=== PATIENT | female | born 1950 | race Caucasian/White ===

== ENCOUNTER 2018-10-14 11:33 | Inpatient (IN) | payer OTHER ==
--- NOTE | 2018-10-14 12:24 | PDOC ---
History of Present Illness - General Stated Complaint: FEVER Time Seen by Provider: 10/14/18 12:12 - History of Present Illness Initial Comments: 10/14/18 14:37 68 yo F h/o end stage copd, htn afib/ flutter, s/p trach, s/p PICC line who presents to the ED for fever and lethargy. As per NH the patient was altered, less responsive today, hypotensive in the 70' s and low grade fever. At baseline the patient tracks with eyes and responds to command but not this morning. per nursing pt had picc line on arrival at [facility], but was not being used. per long term papers pt was admitted to [facility] from 09/20 - for resp failure, from copd esacerbation, treated for pneumonia and copd, intubated by ems, was on ventilator at [place], extubated on 09/25 which failed, so then switched to trach. peg. on 10/02, and 10/03, then sent to [facility] for rehab 10/06. was noted to have afib/aflutter, . per nursing pt was more alert on arrival to rehab would communicate by nodding, ask to sponge mouth, etc. over last two days became more drowsy with low grade temps. 10/14/18 14:41 Patient is DNR Past History - Past Medical History Allergies/Adverse Reactions: Allergies Allergy/AdvReac Type Severity Reaction Status Date / Time No Known Allergies Allergy Verified 10/14/18 12:24 Review of Systems - Review of Systems Able to Perform ROS?: No (altrered, nonverbal) *Physical Exam - Physical Exam General Appearance: Yes: Moderate Distress HEENT: positive: EOMI, EL Respiratory/Chest: positive: Decreased Breath Sounds, Rhonchi Cardiovascular: positive: Tachycardia, Irregularly Irregular Gastrointestinal/Abdominal: positive: Normal Bowel Sounds, Flat, Distended. negative: Tender, Soft Neurologic: negative: Fully Oriented, Alert, Normal Mood/Affect ED Treatment Course - LABORATORY CBC & Chemistry Diagram: 10/14/18 13:21 10/14/18 13:21 Medical Decision Making - Medical Decision Making 10/14/18 16:47 68 yo F h/o end stage copd, htn afib/ flutter, s/p trach, s/p PICC line who presents to the ED for fever and lethargy. Sepsis source can be either from Ventilator-associated pneumonia, UTI, or soft tissue infection from removed PICC line Septic workup ordered, positive for elevated wbc and lactate as well as 6.8 hemoglobin. Patient started on antibiotics covering atypicals as well and rbc's. + 2L of fluid. Spoke to daughter who would like the patient to get blood transfusion but no central line which disqualifies the patient for ICU admission. Patient admitted to med surg. Obtaining ct abdomen and hest to [facility] source of infection. Positive for left pneumonia. *DC/Admit/Observation/Transfer Diagnosis at time of Disposition: Septic shock - Discharge Dispostion Decision to Admit order: Yes - Referrals - Patient Instructions - Post Discharge Activity
[2018-10-14] MEDS ORDERED: VANCOMYCIN 1 GM in D5W (PRE-DOCKED) 1,000 MG/250 ML IVPB ONE (12:33)
[2018-10-14] MEDS ORDERED: PIPERACILLIN/TAZOB 3.375 GM 3.375 GM in DEXTROSE 5%-WATER - 50 ML IVPB ONE (12:34)
[2018-10-14] MEDS ORDERED: SODIUM CHLORIDE 1,000 ML IV STA (12:36)
[2018-10-14] MEDS ORDERED: VANCOMYCIN 1 GRAM (PRE-DOCKED) 1,000 MG/250 ML BAG IVPB ONE (13:26)
[2018-10-14] MEDS ORDERED: PIPERACILLIN/TAZOB 3.375 GM 3.375 GM/50 ML BAG IVPB ONE (13:27)
[2018-10-14] MEDS ORDERED: ACETAMINOPHEN 1000 MG/100 ML VIAL (NON FORMULARY) IVPB ONE (13:34)
[2018-10-14] MEDS ORDERED: ACETAMINOPHEN INJECTION 100 ML IVPB ONE (13:35)
[2018-10-14 13:42] LABS: BASO % 0.5 % (0-2.0); HEMATOCRIT 20.2 % (32.4-45.2); LYMPH % 4.7 % (8-40); MCH 30.2 pg (25.7-33.7); MCHC 33.6 g/dl (32.0-36.0); MEAN PLT VOLUME 8.7 fl (7.5-11.1); MONO % 12.1 % (3.8-10.2); NEUT % 82.7 % (42.8-82.8); PLATELET COUNT 365 K/MM3 (134-434); RBC 2.24 M/mm3 (3.60-5.2); RDW 14.5 % (11.6-15.6); WHITE BLOOD COUNT 11.1 K/mm3 (4.0-10.0)
[2018-10-14 14:08] LABS: HEMOGLOBIN 6.8 GM/dL (10.7-15.3)
--- NOTE | 2018-10-14 14:09 | PDOC ---
Documentation entered by Ibeth Sanchez SCRIBE, acting as scribe for Vale Burrell MD. Vale Burrell MD: This documentation has been prepared by the donnye, Ibeth Sanchez SCRIBE, under my direction and personally reviewed by me in its entirety. I confirm that the documentation accurately reflects all work, treatment, procedures, and medical decision making performed by me. Attending Attestation - Resident Resident Name: Marlon Carrasco - ED Attending Attestation I have performed the following: I have examined & evaluated the patient, The case was reviewed & discussed with the resident, I agree w/resident's findings & plan, Exceptions are as noted - HPI HPI: 10/14/18 13:33 68 yo F h/o end stage copd, htn afib/ flutter, s/p trach, s/p PICC line who presents to the ED for fever and lethargy. As per residential, the patient was less aware today than she normally is (usually responds to stimuli, tracks with eyes). was also noted to have low samantha fever of 100 and was hypotensive in 70' s per her family ( daughter lesley [phone] and granddaughter) the facility pulled her picc line yesterday. per nursing pt had picc line on arrival at [facility], but was not being used. per residential papers pt was admitted to [facility] from 09/20 - for resp failure, from copd esacerbation, treated for pneumonia and copd, intubated by ems, was on ventilator at [place], extubated on 09/25 which failed, so then switched to trach. peg. on 10/02, and 10/03, then sent to [facility] for rehab 10/06. was noted to have afib/aflutter, . per nursing pt was more alert on arrival to rehab would communicate by nodding, ask to sponge mouth, etc. over last two days became more drowsy with low grade temps. In the ER, rectal temp was recorded at 101. diltiazem, atenolol prednisone 10 mg tid on a taper asa 81 xanax quitiepine 50 duonebs 10/14/18 13:50 10/14/18 14:07 - Physicial Exam PE: 10/14/18 13:52 pt eyes open, does not respond. trach in place. peg noted on abd. lungs with decreased breath sounds left side. no crackels, occasional exp wheezing noted. abd distended. peg with purulence, mucous at site. ext wwp. no noted edema. nuero pt does not respond or follow commands. seen to be spontaneously moving both arms. sacaral decub stage II, pink base. no surrounding erythema or exudate. dressingin place. 10/14/18 14:07 - Medical Decision Making 10/14/18 13:53 68 yo F copd htn trach/ peg with fever and hypotension. likley sepsis. sources include poss bacteremia from picc line, pneumonia, ventilator associated, uti, . plan lab ua cxr cultures. broad coverage abx given vanco and zosyn. pt with molst DNR / DNI. will d/w family further regarding other invasive procedures such as central access and pressor support. rescusitation with ivf. 10/14/18 14:13 pt with elevated wbc 11, noted to be anemic. 6.1 d/w family regarding possible transfusion are agreeable to transfusion. will admit pt sepsis, anemia. noted to have loose stool, c diff sent. will add stool occult. 10/14/18 14:36 Phone call placed to Dr. Martini service, admitting for Dr. Cyr. Call returned promptly and case was discussed. 10/14/18 16:01 pt evaluated by ICU further discussion with family, they would not like iv pressore, no central line, no dialysis, no surgery. ok with blood transfusion, pt is to be DNR. Heart Score/ECG Review #1 General ECG Interpretation: Sinus Rhythm, Normal Rate (95), Normal Intervals, No acute ischemic changes
[2018-10-14 14:12] LABS: ALBUMIN 1.9 g/dl (3.4-5.0); ALK PHOS 117 U/L (45-117); ANION GAP 7 MMOL/L (8-16); BILIRUBIN,TOTAL 0.5 mg/dL (0.2-1); BLOOD UREA NITROGEN 42 mg/dL (7-18); CALCIUM 8.8 mg/dL (8.5-10.1); CHLORIDE 89 mmol/L (98-107); CO2 36 mmol/L (21-32); CREATININE 0.7 mg/dL (0.55-1.3); GLUCOSE,RANDOM 145 mg/dL (74-106); POTASSIUM 5.1 mmol/L (3.5-5.1); SGOT/AST 15 U/L (15-37); SGPT/ALT 38 U/L (13-61); SODIUM 132 mmol/L (136-145); TOT PROT 5.9 g/dl (6.4-8.2)
[2018-10-14 14:15] LABS: INR 1.11 (0.83-1.09); PROTHROMBIN TIME (PATIENT) 13.1 SEC (9.7-13.0)
[2018-10-14 14:18] LABS: ACTIVATED PTT 31.7 SECONDS (25.2-36.5)
[2018-10-14] MEDS ORDERED: LACTATED RINGERS SOLUTION 1,000 ML/1,000 ML INFUS.BAG IV STA (14:54)
--- NOTE | 2018-10-14 15:01 | EKG ---
Test Reason : Blood Pressure : / mmHG Vent. Rate : 095 BPM Atrial Rate : 095 BPM P-R Int : 122 ms QRS Dur : 066 ms QT Int : 304 ms P-R-T Axes : 077 081 086 degrees QTc Int : 382 ms SINUS RHYTHM WITH FUSION COMPLEXES OTHERWISE NORMAL ECG NO PREVIOUS ECGS AVAILABLE Confirmed by SHERIN MEREDITH MD ([id number]) on 10/14/2018 3:00:34 PM Referred By: Confirmed By:SHERIN MEREDITH MD
--- NOTE | 2018-10-14 16:36 | CONSULT ---
Consultation: REQUESTING PROVIDER: Resident Dr. Carrasco CONSULT REQUEST: We have been asked to medically evaluate this patient for ICU placement. HISTORY OF PRESENT ILLNESS: 68 y/o female presenting to [facility] ER from [facility] with an altered mental status. Per ED report, the pt was hypotensive, febrile (101 rectally), and hypoxic. Laboratory studies revealed normocytic anemia, mild leukocytosis, and an elevated lactic acid. A portable CXR revealed a left pleural effusion and possible chronic interstitial lung findings versus acute patchy infiltrates. She was given Vancomycin and Zosyn for empiric antibiotic coverage, a LR IVFB, and 2 units PRBCs were ordered. Pt was recently discharged from [facility] on 06 October 2018 following acute respiratory failure suspected to be secondary to COPD. Pt was unable to be extubated. A trach and PEG were inserted. Pt was sent to a SNF for further care. A PICC line was placed before discharge and removed yesterday at [facility]. Pt is DNR. Daughter Latoya Salguero is pts healthcare proxy; Cell . Supporting paperwork provided by Ziyad. PCP: Dr. Cyr Medical Hx: - End stage COPD - HTN - A-fib/flutter Surgical Hx: - S/p Trach placement - S/p PEG tube insertion - S/p PICC placement, removed Review of Systems: Unable to obtain secondary to pts clinical condition. Supplemental Oxygen: Ventilator: Mode: AC Vent rate: 18 Tv: 350 PEEP: 5 Peak Flow: 50 FiO2: 50% PHYSICAL EXAMINATION Vital Signs - 24 hr 10/14/18 10/14/18 12:00 13:08 Pulse Rate 99 H Respiratory 18 50 H Rate Blood Pressure 127/90 O2 Sat by Pulse 99 Oximetry (%) Constitutional: Elderly adult female, sickly appearing. Generalized withdrawal from painful stimuli. Head: Normocephalic. No obvious external signs of trauma. Eyes: Pupils 4mm and PERRL bilaterally. Did not track fingers. Sclerae white. Conjunctiva moist and not injected. Neck: Supple, trachea is midline. Trach and collar in place. Small amount of green mucus surrounding track. Cardiovascular / Chest: Regular rate and regular rhythm. No murmur, rubs, clicks, or gallops. Peripheral pulses: radial pulses full. No pretibial edema. Respiratory: Mechanically ventilated. Breath sounds bilaterally. Trace rhonchi in lower left anterior field. No stridor or wheezing. Gastrointestinal: abdomen is somewhat distended but not taught. PEG site in LUQ ; clean, dry, and intact. No pulsatile masses. No overlying skin lesions or obvious signs of trauma. Neuro: Unresponsive. Does not follow verbal commands. Generalized withdrawal to painful stimuli. Skin: Warm, and dry. Laboratory Results - last 24 hr 10/14/18 10/14/18 10/14/18 13:21 13:21 13:21 WBC 11.1 H RBC 2.24 L Hgb 6.8 L* Hct 20.2 L MCV 90.0 MCH 30.2 MCHC 33.6 RDW 14.5 Plt Count 365 MPV 8.7 Absolute Neuts (auto) 9.2 H Neutrophils % 82.7 Lymphocytes % 4.7 L Monocytes % 12.1 H Eosinophils % 0.0 Basophils % 0.5 Nucleated RBC % 0 PT with INR 13.10 H INR 1.11 H PTT (Actin FS) 31.7 Sodium 132 L Potassium 5.1 Chloride 89 L Carbon Dioxide 36 H Anion Gap 7 L BUN 42 H Creatinine 0.7 Creat Clearance w eGFR 82.97 Random Glucose 145 H Lactic Acid Calcium 8.8 Total Bilirubin 0.5 AST 15 ALT 38 Alkaline Phosphatase 117 Troponin I Total Protein 5.9 L Albumin 1.9 L Stool Occult Blood Blood Type Antibody Screen Crossmatch 10/14/18 10/14/18 10/14/18 13:21 14:15 14:15 WBC RBC Hgb Hct MCV MCH MCHC RDW Plt Count MPV Absolute Neuts (auto) Neutrophils % Lymphocytes % Monocytes % Eosinophils % Basophils % Nucleated RBC % PT with INR INR PTT (Actin FS) Sodium Potassium Chloride Carbon Dioxide Anion Gap BUN Creatinine Creat Clearance w eGFR Random Glucose Lactic Acid 3.6 H* Calcium Total Bilirubin AST ALT Alkaline Phosphatase Troponin I < 0.02 Total Protein Albumin Stool Occult Blood Blood Type O NEGATIVE Antibody Screen Negative Crossmatch See Detail 10/14/18 16:00 WBC RBC Hgb Hct MCV MCH MCHC RDW Plt Count MPV Absolute Neuts (auto) Neutrophils % Lymphocytes % Monocytes % Eosinophils % Basophils % Nucleated RBC % PT with INR INR PTT (Actin FS) Sodium Potassium Chloride Carbon Dioxide Anion Gap BUN Creatinine Creat Clearance w eGFR Random Glucose Lactic Acid Calcium Total Bilirubin AST ALT Alkaline Phosphatase Troponin I Total Protein Albumin Stool Occult Blood Positive Blood Type Antibody Screen Crossmatch ASSESSMENT/PLAN: 68 year old female s/p trach and PEG with end stage COPD, HTN, Afib/ flutter. Presenting with altered mental status, hypotension, and fever. Code Status / Family Conversation: - Pt arrived with DNR paperwork completed. Long conversation with pts daughter/ healthcare proxy about goals of care. Daughter felt her mother would not want any additional aggressive or invasive procedures. Consented to a blood transfusion, IV fluids, antibiotics, and imaging. Declined a central line, vasoactive medications, dialysis, or possible surgical intervention. All questions were answered. MEDICAL CODING INSTRUCTOR Franci Stephen, admitting provider for Dr. Trinidad was present and involved in this conversation. - Would suggest palliative care consult as family expressed interest in initiating palliative measures. Neuro (& Psych): - Unresponsive. Possibly secondary to infection. Cardiovascular: - Hypotensive on arrival. Volume resuscitated with IVF and PRBC. - HTN. Hold home medications given hypotension. - Afib/flutter. Not present on monitor. Pulm / Resp: - Trach dependent. Continue to mechanically ventilate pt. Titrate up FiO2 as needed. Suggest SPO2 goal of 90% given h/o COPD. - Possible pneumonia on CXR. Gastrointestinal: - Continue PEG tube feeds per Adira orders. Genitourinary: - UA unremarkable for pyuria, nitrites, or leukocyte esterase. Urine culture pending. Low suspicion for UTI. Hematologic: - Anemic. SFOB positive, but stool not grossly bloody or melanotic per ED team. Possible GI bleed. Infectious Disease: - Fever, hypotension, altered mental status, and elevated lactic acid. Possible septic infection. Most likely source is pulmonary given recent COPD exacerbation and trach placement. Empiric antibiotic coverage initiated by ED. FEN: - PEG feeds Prophylaxis: - DVT: SCDs. No pharmacologic given anemia and positive SFOB. - GI: c/w outpatient therapy. Dispo: Pt does not require ICU care given familys goals of care. Pt can go to 5S ventilator floor. Does not require continuous pulse oximetry given goals of care. Thank you for this consultative opportunity. We will not continue to follow the pt. Please re-consult if goals of care change. Case discussed with ICU attending, Dr. Pat. Alexandre Avendaño MD, PGY1 ICU Consult Service Visit type - Emergency Visit Emergency Visit: No - New Patient This patient is new to me today: Yes Date on this admission: 10/14/18 - Critical Care Critical Care patient: Yes Total Critical Care Time (in minutes): 50 Critical Care Statement: The care of this patient involved high complexity decision making to prevent further life threatening deterioration of the patient 's condition and/or to evaluate & treat vital organ system(s) failure or risk of failure.
[2018-10-14] MEDS ORDERED: AZITHROMYCIN IVPB 500 MG in DEXTROSE 5%-WATER - 250 ML IVPB ONE (16:49)
[2018-10-14] MEDS ORDERED: AZITHROMYCIN IVPB 500 MG/250 ML BAG IVPB ONE (16:59)
[2018-10-14 17:42] LABS: ANISOCYTOSIS 1+; PLATELET ESTIMATE NORMAL
[2018-10-14 18:43] LABS: PH,URINE 6.5 (5.0-8.0); URINE APPEARANCE CLOUDY; URINE BILIRUBIN NEGATIVE (NEGATIVE); URINE COLOR YELLOW; URINE GLUCOSE (UA) NEGATIVE (NEGATIVE); URINE KETONE NEGATIVE (NEGATIVE); URINE LEUK ESTERASE NEGATIVE (NEGATIVE); URINE NITRITE NEGATIVE (NEGATIVE); URINE PROTEIN TRACE (NEGATIVE)
--- NOTE | 2018-10-14 21:47 | HP ---
Admitting History and Physical - Admission Chief Complaint: Hypotension, AMS History of Present Illness: Patient is a 68 y/o female with past medical history of COPD, HTN, afib/flutter , s/p trach. Patient presented to ER from [facility] for AMS, hypotension and fever. Systolic BP noted to be in 70s in SNF. In ER received IVF and BP improved to 127/90 but then became hypotensive again at 96/49. Patient was recently admitted to [facility] earlier this month for COPD exacerbation and was intubated. Patient had failed extubation and trach was then placed and has been mechanically ventilated. Spoke with patient KEATON Latoyafaisal Salguero, patient is DNR and would like supportive measures, no invasive treatment but wishes for trial ABT. History Source: Family Member, Medical Record Limitations to Obtaining History: Clinical Condition - Past Medical History Cardiovascular: Yes: AFIB, HTN Pulmonary: Yes: COPD - Smoking History Smoking history: Unknown if ever smoked Have you smoked in the past 12 months: No - Alcohol/Substance Use Hx Alcohol Use: No - Social History Usual Living Arrangement: Yes: Group Home ADL: Support Services Home Medications - Allergies Allergies/Adverse Reactions: Allergies Allergy/AdvReac Type Severity Reaction Status Date / Time No Known Allergies Allergy Verified 10/14/18 12:24 Review of Systems Unable to obtain ROS, reason: patient non verbal Physical Examination Vital Signs: Vital Signs Temperature Pulse Rate 99 H 10/14/18 12:00 Respiratory Rate 50 H 10/14/18 13:08 Blood Pressure 127/90 10/14/18 12:00 O2 Sat by Pulse Oximetry (%) 99 10/14/18 12:00 Constitutional: Yes: No Distress, Calm, Pallor Eyes: Yes: Conjunctiva Clear HENT: Yes: Atraumatic Neck: Yes: Other (trach) Cardiovascular: Yes: Pulse Irregular Respiratory: Yes: Accessory Muscle Use, Mechanically Ventilated, Rhonchi Gastrointestinal: Yes: Normal Bowel Sounds, Soft Renal/: Yes: Incontinence Musculoskeletal: Yes: Muscle Weakness Extremities: Yes: WNL Edema: No Neurological: Yes: Lethargy, Pre-Existing Deficit Labs: CBC, BMP 10/14/18 13:21 10/14/18 13:21 Imaging - Results Chest X-ray: Report Reviewed EKG: Report Reviewed Problem List - Problems (1) Hypotension Assessment/Plan: -monitor BP -NS at 75cc/hr Code(s): I95.9 - HYPOTENSION, UNSPECIFIED (2) Toxic metabolic encephalopathy Assessment/Plan: -2/2 sepsis -WBC 11.1 -pending sputum culture, BC, and UC Code(s): G92 - TOXIC ENCEPHALOPATHY (3) Septic shock Assessment/Plan: -WBC 11.1 -LA 3.6 but trend down to 2.0 -pending BC, UC, sputum culture -received Vancomycin and Zosyn IV in ER -ID consult -tylenol prn for temp >100F -IV hydration -CXR shows coarse lung changes with some chronic interstitial lung finding as well as acute patchy infiltrates Code(s): A41.9 - SEPSIS, UNSPECIFIED ORGANISM; R65.21 - SEVERE SEPSIS WITH SEPTIC SHOCK (4) Anemia Assessment/Plan: -Hg 6.8 -2U PRBC for transfusion ordered -monitor Hg and transfuse if Hg <7.0 Code(s): D64.9 - ANEMIA, UNSPECIFIED Assessment/Plan See problem list palliative consult DNR
[2018-10-15] MEDS: HEPARIN NA (PORCINE) 5,000 UNITS/ML 1ML VIAL SQ SCH ×3 (00:30→21:50)
[2018-10-15] MEDS ORDERED: HEPARIN NA (PORCINE) 5,000 UNITS/ML 1ML VIAL ONE (00:42)
[2018-10-15] MEDS: SODIUM CHLORIDE 1,000 ML IV SCH ×2 (01:40→21:50)
[2018-10-15] MEDS ORDERED: ACETAMINOPHEN 1000 MG/100 ML VIAL (NON FORMULARY) IVPB ONE (02:13)
[2018-10-15 08:39] LABS: BASO % 0.2 % (0-2.0); EOS % 0.1 % (0-4.5); HEMATOCRIT 29.8 % (32.4-45.2); HEMOGLOBIN 10.1 GM/dL (10.7-15.3); LYMPH % 5.9 % (8-40); MCH 30.1 pg (25.7-33.7); MEAN CELL VOLUME 88.6 fl (80-96); MONO % 10.4 % (3.8-10.2); NEUT % 83.4 % (42.8-82.8); PLATELET COUNT 371 K/MM3 (134-434); RBC 3.36 M/mm3 (3.60-5.2); RDW 14.3 % (11.6-15.6); WHITE BLOOD COUNT 11.9 K/mm3 (4.0-10.0)
[2018-10-15 09:09] LABS: ALBUMIN 1.7 g/dl (3.4-5.0); ALK PHOS 94 U/L (45-117); AMYLASE 23 U/L (25-115); ANION GAP 6 MMOL/L (8-16); BILIRUBIN,TOTAL 3.4 mg/dL (0.2-1); BLOOD UREA NITROGEN 40 mg/dL (7-18); CHLORIDE 94 mmol/L (98-107); CO2 34 mmol/L (21-32); CREATININE 0.4 mg/dL (0.55-1.3); GLUCOSE,RANDOM 79 mg/dL (74-106); LIPASE 62 U/L (73-393); MAGNESIUM 2.2 mg/dL (1.8-2.4); PHOSPHOROUS 3.7 mg/dL (2.5-4.9); POTASSIUM 4.6 mmol/L (3.5-5.1); SGOT/AST 18 U/L (15-37); SGPT/ALT 33 U/L (13-61); SODIUM 134 mmol/L (136-145); TOT PROT 5.3 g/dl (6.4-8.2)
[2018-10-15] MEDS ORDERED: FLU VACCINE QUAD 60 MCG/0.5 ML (MDV 18-19) IM ONE (11:00)
[2018-10-15] MEDS ORDERED: PNEUMOC 13-VAL CONJ-DIP CRM/PF 0.5 ML DISP.SYRIN IM ONE (11:00)
[2018-10-15] MEDS ORDERED: MEROPENEM 1 GM VIAL (RESTRICTED TO ID) IVPB ONE ×2 (11:15→18:20)
[2018-10-15] MEDS ORDERED: DEXTROSE 5%-WATER 100 ML IVPB ONE ×2 (11:15→18:20)
[2018-10-15] MEDS: MEROPENEM 1 GM in DEXTROSE 5%-WATER 100 ML IVPB SCH ×2 (11:20→18:24)
[2018-10-15 12:50] LABS: ANISOCYTOSIS 0; MACROCYTOSIS 0; PLATELET ESTIMATE NORMAL
[2018-10-15] MEDS: dilTIAZem HCL 30 MG TABLET (FP) GT SCH ×3 (12:59→23:35)
--- NOTE | 2018-10-15 13:16 | PN ---
Progress Note, Physician Chief Complaint: Pneumonia Anemia History of Present Illness: Previous notes and events reviewed awake and alert NAD mechanically ventilated more awake today, responds to name Hg improve to 10.1 s/p 2U PRBC transfusion - Current Medication List Current Medications: Active Medications Acetaminophen (Tylenol -) 650 mg PO Q6H PRN PRN Reason: FEVER Albuterol Sulfate (Ventolin 0.083% Nebulizer Soln -) 1 amp NEB Q6H PRN PRN Reason: SHORT OF BREATH/WHEEZING Artificial Tears (Artificial Tears) 1 drop OU BID [facility] Aspirin (Asa -) 81 mg GT DAILY [facility] Atenolol (Tenormin -) 25 mg GT DAILY [facility] Diltiazem HCl (Cardizem -) 30 mg GT Q6HPO [facility] Last Admin: 10/15/18 12:59 Dose: 30 mg Docusate Sodium (Colace Liquid -) 300 mg GT HS [facility] Heparin Sodium (Porcine) (Heparin -) 5,000 unit SQ BID [facility] Last Admin: 10/15/18 11:20 Dose: Not Given Sodium Chloride (Normal Saline -) 1,000 mls @ 75 mls/hr IV ASDIR [facility] Last Admin: 10/15/18 01:40 Dose: 75 mls/hr Meropenem 1 gm/ Dextrose 100 mls @ 200 mls/hr IVPB Q8H-IV [facility] Last Admin: 10/15/18 11:20 Dose: 200 mls/hr Amino Acids (Clinimix -) 1,000 mls @ 83.333 mls/hr IV Q12H [facility] Pantoprazole Sodium (Protonix Packets For Oral Suspension -) 40 mg NGT DAILY [facility] Paroxetine HCl (Paxil Oral Suspension -) 10 mg GT DAILY [facility] - Objective Vital Signs: Vital Signs Temperature 98.4 F 10/15/18 10:32 Pulse Rate 96 H 10/15/18 10:32 Respiratory Rate 18 10/15/18 10:32 Blood Pressure 151/76 10/15/18 10:32 O2 Sat by Pulse Oximetry (%) 98 10/15/18 04:04 Constitutional: Yes: No Distress, Calm Eyes: Yes: Conjunctiva Clear HENT: Yes: Atraumatic Neck: Yes: Other (trach) Cardiovascular: Yes: Regular Rate and Rhythm Respiratory: Yes: Mechanically Ventilated, Rhonchi Gastrointestinal: Yes: Normal Bowel Sounds, Soft, Other (PEG) Genitourinary: Yes: Incontinence Musculoskeletal: Yes: Muscle Weakness Extremities: Yes: WNL Edema: No Neurological: Yes: Pre-Existing Deficit Psychiatric: Yes: Alert Labs: CBC, BMP 10/15/18 07:00 10/15/18 07:00 INR, PTT INR 1.11 (0.83-1.09) H 10/14/18 13:21 Microbiology 10/14/18 13:21 Blood - Peripheral Venous Blood Culture - Preliminary Pending Organism 10/14/18 14:16 Stool Clostridioides difficile Antigen - Final 10/14/18 14:16 Stool Clostridioides difficile Toxin Assay - Final - ....Imaging Cat Scan: Report Reviewed Problem List - Problems (1) Hypotension Assessment/Plan: -monitor BP -NS at 75cc/hr -BP improved Code(s): I95.9 - HYPOTENSION, UNSPECIFIED (2) Toxic metabolic encephalopathy Assessment/Plan: -2/2 sepsis -WBC 11.9 -pending sputum culture and UC -BC prelim positive for gram neg bacilli Code(s): G92 - TOXIC ENCEPHALOPATHY (3) Septic shock Assessment/Plan: -WBC 11.9 -LA 3.6 but trend down to 2.0 -pending UC, sputum culture -BC prelim positive for gram neg bacilli -IV Meropenem -ID consult -tylenol prn for temp >100F -IV hydration -CXR shows coarse lung changes with some chronic interstitial lung finding as well as acute patchy infiltrates -Chest CT scan shows Extensive, diffuse pulmonary consolidation within KALEB and both lung bases Code(s): A41.9 - SEPSIS, UNSPECIFIED ORGANISM; R65.21 - SEVERE SEPSIS WITH SEPTIC SHOCK (4) Anemia Assessment/Plan: -Hg 10.1 -s/p 2U PRBC transfusion -monitor Hg and transfuse if Hg <7.0 Code(s): D64.9 - ANEMIA, UNSPECIFIED Assessment/Plan See problem list palliative consult DNR
--- NOTE | 2018-10-15 13:29 | CON.ID ---
Consult Consult Specialty:: infectious disease Referred by:: dr vargas - History of Present Illness Chief Complaint: fever, hypotension History of Present Illness: 68 yo female NHR with PMH of copd , HTN afib/flutter recently admitted to [facility] where she had respiratory failure and was unable to be extubated- she required trach and PEG ulclear if she had pneumonia or antibiotics there - records are not avialable she was [place] to the [facility] [place]26 from [place] received vanco/zosyn in ED - History Source History Provided By: Medical Record Limitations to Obtaining History: Clinical Condition - Past Medical History Cardio/Vascular: Yes: AFIB, HTN Pulmonary: Yes: COPD, Other (respiratory failure requiring trach) - Past Surgical History Additional Surgical History: tracheostomy, GT - Alcohol/Substance Use Hx Alcohol Use: No - Smoking History Smoking history: Unknown if ever smoked Have you smoked in the past 12 months: No - Social History Usual Living Arrangement: [facility] ADL: Support Services History of Recent Travel: No Home Medications - Allergies Allergies/Adverse Reactions: Allergies Allergy/AdvReac Type Severity Reaction Status Date / Time No Known Allergies Allergy Verified 10/14/18 12:24 - Home Medications Home Medications: Ambulatory Orders Acetaminophen 650 mg PEG Q6H PRN 10/15/18 Alprazolam [Xanax] 0.5 mg PEG Q8H 10/15/18 Aspirin 81 mg PEG DAILY 10/15/18 Atenolol [Tenormin -] 25 mg PEG DAILY 10/15/18 Dextran 70/Hypromellose [Artificial Tears Eye Drops] 15 ml OP BID 10/15/18 Diltiazem [Cardizem -] 30 mg PEG Q6H 10/15/18 Docusate Sodium 300 mg PEG HS 10/15/18 Levalbuterol HCl [Xopenex] 1.25 mg IH Q6H 10/15/18 Omeprazole 40 mg PEG DAILY 10/15/18 Paroxetine HCl [Paxil -] 10 mg PEG DAILY 10/15/18 Prednisone [Deltasone] 40 mg PEG DAILY 10/15/18 Quetiapine Fumarate [Seroquel -] 50 mg PEG BID 10/15/18 Family Disease History - Family Disease History Family History: Unable to Obtain Review of Systems Unable to obtain ROS, reason: unable to obtain Physical Exam Vital Signs: Vital Signs Temperature 98.4 F 10/15/18 10:32 Pulse Rate 96 H 10/15/18 10:32 Respiratory Rate 18 10/15/18 10:32 Blood Pressure 151/76 10/15/18 10:32 O2 Sat by Pulse Oximetry (%) 98 10/15/18 04:04 Constitutional: Yes: No Distress HENT: Yes: Atraumatic, Normocephalic Neck: Yes: Other (trach) Cardiovascular: Yes: Regular Rate and Rhythm Respiratory: Yes: Regular, Diminished Gastrointestinal: Yes: Normal Bowel Sounds, Soft, Other (GT) ...Rectal Exam: Yes: Deferred Extremities: Yes: WNL Edema: No Labs: CBC, BMP 10/15/18 07:00 10/15/18 07:00 Microbiology 10/14/18 13:21 Blood - Peripheral Venous Blood Culture - Preliminary NO GROWTH OBTAINED AFTER 24 HOURS, INCUBATION TO CONTINUE FOR 4 DAYS. 10/14/18 13:21 Blood - Peripheral Venous Blood Culture - Preliminary Pending Organism 10/14/18 14:16 Stool Clostridioides difficile Antigen - Final 10/14/18 14:16 Stool Clostridioides difficile Toxin Assay - Final Imaging - Results Chest X-ray: Report Reviewed, Image Reviewed Cat Scan: Report Reviewed, Image Reviewed Problem List - Problems (1) Septic shock Code(s): A41.9 - SEPSIS, UNSPECIFIED ORGANISM; R65.21 - SEVERE SEPSIS WITH SEPTIC SHOCK (2) Gram negative sepsis Code(s): A41.50 - GRAM-NEGATIVE SEPSIS, UNSPECIFIED (3) Pneumonia Code(s): J18.9 - PNEUMONIA, UNSPECIFIED ORGANISM (4) Chronic respiratory failure Code(s): J96.10 - CHRONIC RESPIRATORY FAILURE, UNSP W HYPOXIA OR HYPERCAPNIA (5) Anemia Code(s): D64.9 - ANEMIA, UNSPECIFIED Assessment/Plan extensive multilobar pneumonia with gram negative sepsis in the ventilator devleoped women just recently admitted to [facility] (09/26) suggest treating with meropenem until results are back- past treatment history is not known sent sputum culture as well anemia with guaic positive stools- family declines any aggressive treatment wants to continue ivf and iv antibiotics DNR/DNI
--- NOTE | 2018-10-15 14:43 | CON.PULM ---
Consult Consult Specialty:: PULM/CCM Referred by:: LUIS Reason for Consultation:: PNA / vent dependent - History of Present Illness Chief Complaint: AMS & fever & hypotension History of Present Illness: 68 F, recent hospitalization at [place] earlier this month for acute respiratory failure. She failed extubation trials and subsequently a Tracheostomy was placed. Additional medical history of COPD, HTN, and afib/flutter. Sent from the SNF due to AMS, hypotension, and fever. Systolic BP noted to be in 70s in SNF. In ER, the BP improved after IVF resuscitation. Patient is unable to provide any accurate history or information. CT Chest: Diffuse, extensive consolidations in the KALEB and bilateral LL. - History Source History Provided By: Medical Record Limitations to Obtaining History: Clinical Condition - Past Medical History Cardio/Vascular: Yes: AFIB, HTN Pulmonary: Yes: COPD, O2 Dependent, Previously Intubated, Other (respiratory failure requiring trach). No: Cancer, Pulmonary Embolus, Pulmonary Fibrosis - Past Surgical History Additional Surgical History: tracheostomy, GT - Alcohol/Substance Use Hx Alcohol Use: No - Smoking History Smoking history: Unknown if ever smoked Have you smoked in the past 12 months: No - Social History Usual Living Arrangement: [facility] ADL: Support Services History of Recent Travel: No Home Medications - Allergies Allergies/Adverse Reactions: Allergies Allergy/AdvReac Type Severity Reaction Status Date / Time No Known Allergies Allergy Verified 10/14/18 12:24 - Home Medications Home Medications: Ambulatory Orders Acetaminophen 650 mg PEG Q6H PRN 10/15/18 Alprazolam [Xanax] 0.5 mg PEG Q8H 10/15/18 Aspirin 81 mg PEG DAILY 10/15/18 Atenolol [Tenormin -] 25 mg PEG DAILY 10/15/18 Dextran 70/Hypromellose [Artificial Tears Eye Drops] 15 ml OP BID 10/15/18 Diltiazem [Cardizem -] 30 mg PEG Q6H 10/15/18 Docusate Sodium 300 mg PEG HS 10/15/18 Levalbuterol HCl [Xopenex] 1.25 mg IH Q6H 10/15/18 Omeprazole 40 mg PEG DAILY 10/15/18 Paroxetine HCl [Paxil -] 10 mg PEG DAILY 10/15/18 Prednisone [Deltasone] 40 mg PEG DAILY 10/15/18 Quetiapine Fumarate [Seroquel -] 50 mg PEG BID 10/15/18 Review of Systems Unable to obtain ROS, reason: cannot provide Physical Exam Vital Sings: Vital Signs Temperature 98.1 F 10/15/18 13:36 Pulse Rate 92 H 10/15/18 13:36 Respiratory Rate 20 10/15/18 14:26 Blood Pressure 144/63 10/15/18 13:36 O2 Sat by Pulse Oximetry (%) 98 10/15/18 04:04 Constitutional: Yes: No Distress, Thin Eyes: Yes: Conjunctiva Clear, EOM Intact HENT: Yes: Atraumatic, Normocephalic Neck: Yes: Trachea Midline, Other (Tracheostomy in place ) Cardiovascular: Yes: Pulse Irregular Respiratory: Yes: Diminished, Mechanically Ventilated, Rhonchi. No: Accessory Muscle Use, Rales, SOB, SOB on Exertion, Stridor, Tachypnea, Wheezes ...Inspection: Yes: WNL ...Clubbing: No Gastrointestinal: Yes: Normal Bowel Sounds, Soft Renal/: Yes: WNL Musculoskeletal: Yes: WNL Extremities: Yes: WNL Edema: No Peripheral Pulses WNL: Yes Integumentary: Yes: WNL Neurological: Yes: Confusion, Lethargy Labs: CBC, BMP 10/15/18 07:00 10/15/18 07:00 Imaging - Results Chest X-ray: Report Reviewed, Image Reviewed Cat Scan: Report Reviewed, Image Reviewed Problem List - Problems (1) Sepsis associated hypotension Code(s): A41.9 - SEPSIS, UNSPECIFIED ORGANISM; I95.9 - HYPOTENSION, UNSPECIFIED (2) Acute and chronic respiratory failure Code(s): J96.20 - ACUTE AND CHR RESP FAILURE, UNSP W HYPOXIA OR HYPERCAPNIA (3) Anemia Code(s): D64.9 - ANEMIA, UNSPECIFIED (4) Hypotension Code(s): I95.9 - HYPOTENSION, UNSPECIFIED (5) Pneumonia Code(s): J18.9 - PNEUMONIA, UNSPECIFIED ORGANISM (6) Toxic metabolic encephalopathy Code(s): G92 - TOXIC ENCEPHALOPATHY Assessment/Plan Agree with ABX coverage per ID AC Mode of vent BD TX PRN Check suctioned sputum No clear indication for systemic steroids at this time Not a candidate for wean at this time VTE prophylaxis Will follow Thank you. Dr Pat
[2018-10-15] MEDS: AMINO ACIDS 4.25%/D5W 1,000 ML IV SCH ×2 (15:19→22:43)
[2018-10-15] MEDS ORDERED: PT OWN MED DRAWER 7, Y5N ONE ×2 (18:38→21:54)
[2018-10-15] MEDS: ALBUTEROL SO4 0.083% IH SOL 2.5 MG/3 ML VIAL.NEB. NEB PRN (21:30)
[2018-10-15] MEDS: DOCUSATE NA 100 MG/10 ML UNIT-DOSE CUPS GT SCH (21:49)
[2018-10-15] MEDS: ACETAMINOPHEN 325 MG TABLET (FP) PO PRN (21:51)
[2018-10-15] MEDS: ARTIFICIAL TEARS (POLYVINYL ALCOHOL) OPTH DROPS OU SCH (21:55)
[2018-10-16] MEDS ORDERED: DEXTROSE 5%-WATER 100 ML IVPB ONE ×3 (00:37→17:05)
[2018-10-16] MEDS ORDERED: MEROPENEM 1 GM VIAL (RESTRICTED TO ID) IVPB ONE ×3 (00:37→17:05)
[2018-10-16] MEDS: MEROPENEM 1 GM in DEXTROSE 5%-WATER 100 ML IVPB SCH ×3 (02:28→17:11)
[2018-10-16] MEDS: ALBUTEROL SO4 0.083% IH SOL 2.5 MG/3 ML VIAL.NEB. NEB PRN ×2 (03:00→14:08)
[2018-10-16] MEDS: dilTIAZem HCL 30 MG TABLET (FP) GT SCH ×3 (06:08→17:11)
[2018-10-16 07:25] LABS: HEMATOCRIT 30.1 % (32.4-45.2); HEMOGLOBIN 10.3 GM/dL (10.7-15.3); MCH 30.5 pg (25.7-33.7); MCHC 34.3 g/dl (32.0-36.0); MEAN CELL VOLUME 88.8 fl (80-96); MEAN PLT VOLUME 8.7 fl (7.5-11.1); PLATELET COUNT 483 K/MM3 (134-434); RBC 3.39 M/mm3 (3.60-5.2); RDW 14.2 % (11.6-15.6); WHITE BLOOD COUNT 15.4 K/mm3 (4.0-10.0)
[2018-10-16 07:43] LABS: ALBUMIN 1.6 g/dl (3.4-5.0); ALK PHOS 106 U/L (45-117); ANION GAP 5 MMOL/L (8-16); BILIRUBIN,TOTAL 0.9 mg/dL (0.2-1); BLOOD UREA NITROGEN 31 mg/dL (7-18); CALCIUM 9.2 mg/dL (8.5-10.1); CHLORIDE 92 mmol/L (98-107); CO2 36 mmol/L (21-32); CREATININE 0.2 mg/dL (0.55-1.3); GLUCOSE,RANDOM 136 mg/dL (74-106); POTASSIUM 3.4 mmol/L (3.5-5.1); SGOT/AST 21 U/L (15-37); SGPT/ALT 32 U/L (13-61); SODIUM 133 mmol/L (136-145); TOT PROT 5.7 g/dl (6.4-8.2)
[2018-10-16] MEDS ORDERED: ASPIRIN 81 MG CHEWABLE TABLETS GT SCH (10:00)
[2018-10-16] MEDS ORDERED: PANTOPRAZOLE SOD 40 MG SUSPENSION PACKET NGT SCH (10:00)
[2018-10-16] MEDS: ATENOLOL 25 MG TABLET (FP) GT SCH (11:50)
[2018-10-16] MEDS: ARTIFICIAL TEARS (POLYVINYL ALCOHOL) OPTH DROPS OU SCH ×2 (11:51→21:59)
--- NOTE | 2018-10-16 11:51 | PN ---
Progress Note, Physician History of Present Illness: PULMONARY LETHARGIC ON VENT SUPPORT AC MODE - Current Medication List Current Medications: Active Medications Acetaminophen (Tylenol -) 650 mg PO Q6H PRN PRN Reason: FEVER Last Admin: 10/15/18 21:51 Dose: 650 mg Albuterol Sulfate (Ventolin 0.083% Nebulizer Soln -) 1 amp NEB Q6H PRN PRN Reason: SHORT OF BREATH/WHEEZING Last Admin: 10/16/18 03:00 Dose: 1 amp Artificial Tears (Artificial Tears) 1 drop OU BID CLAY Last Admin: 10/15/18 21:55 Dose: 1 drop Aspirin (Asa -) 81 mg GT DAILY [facility] Atenolol (Tenormin -) 25 mg GT DAILY [facility] Diltiazem HCl (Cardizem -) 30 mg GT Q6HPO CLAY Last Admin: 10/16/18 06:08 Dose: 30 mg Docusate Sodium (Colace Liquid -) 300 mg GT HS [facility] Last Admin: 10/15/18 21:49 Dose: 300 mg Meropenem 1 gm/ Dextrose 100 mls @ 200 mls/hr IVPB Q8H-IV CLAY Last Admin: 10/16/18 02:28 Dose: 200 mls/hr Amino Acids (Clinimix -) 1,000 mls @ 83.333 mls/hr IV Q12H CLAY Last Admin: 10/15/18 22:43 Dose: Not Given Pantoprazole Sodium (Protonix Packets For Oral Suspension -) 40 mg NGT DAILY [facility] Paroxetine HCl (Paxil Oral Suspension -) 10 mg GT DAILY [facility] - Objective Vital Signs: Vital Signs Temperature 98.5 F 10/16/18 11:41 Pulse Rate 97 H 10/16/18 11:41 Respiratory Rate 10/16/18 11:41 Blood Pressure 148/78 10/16/18 11:41 O2 Sat by Pulse Oximetry (%) 98 10/15/18 21:00 Constitutional: Yes: Thin, Other (LETHARGIC) Eyes: Yes: WNL HENT: Yes: WNL Neck: Yes: Supple (TRACH) Cardiovascular: Yes: Regular Rate and Rhythm, S1, S2 Respiratory: Yes: Rhonchi (BILATERAL RHONCHI) Gastrointestinal: Yes: Normal Bowel Sounds, Soft Extremities: Yes: WNL Edema: No Labs: CBC, BMP 10/16/18 06:30 10/16/18 06:30 INR, PTT INR 1.11 (0.83-1.09) H 10/14/18 13:21 Assessment/Plan Problem List - Problems (1) Sepsis associated hypotension Code(s): A41.9 - SEPSIS, UNSPECIFIED ORGANISM; I95.9 - HYPOTENSION, UNSPECIFIED (2) Acute and chronic respiratory failure Code(s): J96.20 - ACUTE AND CHR RESP FAILURE, UNSP W HYPOXIA OR HYPERCAPNIA (3) Anemia Code(s): D64.9 - ANEMIA, UNSPECIFIED (4) Hypotension Code(s): I95.9 - HYPOTENSION, UNSPECIFIED (5) Pneumonia Code(s): J18.9 - PNEUMONIA, UNSPECIFIED ORGANISM (6) Toxic metabolic encephalopathy Code(s): G92 - TOXIC ENCEPHALOPATHY Assessment/Plan ABX coverage per ID AC Mode of vent BD TX PRN Check suctioned sputum Not a candidate for wean at this time VTE prophylaxis monitor lytes f/u chest x-rays nutritional suppor dvt prophylaxis DR LUGO
--- NOTE | 2018-10-16 13:35 | PN ---
Progress Note, Physician Chief Complaint: patient seen and examined on [facility] non verbal admitted for fever and anemia s/p 2 units - Current Medication List Current Medications: Active Medications Acetaminophen (Tylenol -) 650 mg PO Q6H PRN PRN Reason: FEVER Last Admin: 10/15/18 21:51 Dose: 650 mg Albuterol Sulfate (Ventolin 0.083% Nebulizer Soln -) 1 amp NEB Q6H PRN PRN Reason: SHORT OF BREATH/WHEEZING Last Admin: 10/16/18 03:00 Dose: 1 amp Artificial Tears (Artificial Tears) 1 drop OU BID REPLACED BY [facility] Last Admin: 10/16/18 11:51 Dose: 1 drop Aspirin (Asa -) 81 mg GT DAILY REPLACED BY [facility] Last Admin: 10/16/18 11:50 Dose: 81 mg Atenolol (Tenormin -) 25 mg GT DAILY REPLACED BY [facility] Last Admin: 10/16/18 11:50 Dose: 25 mg Diltiazem HCl (Cardizem -) 30 mg GT Q6HPO [facility] Last Admin: 10/16/18 11:50 Dose: 30 mg Docusate Sodium (Colace Liquid -) 300 mg GT HS REPLACED BY [facility] Last Admin: 10/15/18 21:49 Dose: 300 mg Meropenem 1 gm/ Dextrose 100 mls @ 200 mls/hr IVPB Q8H-IV REPLACED BY [facility] Last Admin: 10/16/18 11:50 Dose: 200 mls/hr Amino Acids (Clinimix -) 1,000 mls @ 83.333 mls/hr IV Q12H REPLACED BY [facility] Last Admin: 10/15/18 22:43 Dose: Not Given Pantoprazole Sodium (Protonix Iv) 40 mg IVPUSH DAILY REPLACED BY [facility] Paroxetine HCl (Paxil Oral Suspension -) 10 mg GT DAILY REPLACED BY [facility] Potassium Chloride (Potassium Chloride Oral Liquid) 40 meq PO ONCE ONE Stop: 10/16/18 13:30 - Objective Vital Signs: Vital Signs Temperature 98.5 F 10/16/18 11:41 Pulse Rate 97 H 10/16/18 11:41 Respiratory Rate 10/16/18 11:41 Blood Pressure 148/78 10/16/18 11:41 O2 Sat by Pulse Oximetry (%) 98 10/15/18 21:00 Constitutional: Yes: Calm Neck: Yes: Other (trach) Cardiovascular: Yes: Regular Rate and Rhythm, S1, S2 Respiratory: Yes: Mechanically Ventilated Gastrointestinal: Yes: Normal Bowel Sounds, Soft, Other (g tube) Edema: Yes Labs: CBC, BMP 10/16/18 06:30 10/16/18 06:30 INR, PTT INR 1.11 (0.83-1.09) H 10/14/18 13:21 Problem List - Problems (1) Acute and chronic respiratory failure Assessment/Plan: vent support Code(s): J96.20 - ACUTE AND CHR RESP FAILURE, UNSP W HYPOXIA OR HYPERCAPNIA (2) Anemia Assessment/Plan: s/p prbc gi eval ppi iron panel hold aspirin Code(s): D64.9 - ANEMIA, UNSPECIFIED (3) Hypotension Assessment/Plan: now BP is much better secondary to sepsis on iv abx Microbiology 10/14/18 18:24 Urine - Urine - Catheterized Urine Culture - Preliminary Group D Strep Or Entero Coccus 10/14/18 13:21 Blood - Peripheral Venous Blood Culture - Preliminary Presumptive Ps Aeruginosa Code(s): I95.9 - HYPOTENSION, UNSPECIFIED Assessment/Plan code status dnr
[2018-10-16] MEDS ORDERED: POTASSIUM CHLORIDE ORAL LIQUID 20 MEQ/15 ML PO ONE (14:00)
[2018-10-16 15:46] VITALS: BMI 23.0
--- NOTE | 2018-10-16 16:23 | PN ---
Progress Note (short form) - Note Progress Note: trach to vent opens eyes lethargic Vital Signs Period Temp Pulse Resp BP Sys/Mccartney Pulse Ox Last 24 Hr 97.7 F-100.5 F 79-107 16-19 141-160/49-78 93-98 cor-rrr lungs bilateral rhonchi abd soft,nt +GT ext no edema CBC, BMP 10/16/18 06:30 10/16/18 06:30 Microbiology 10/15/18 18:10 Sputum - Endotrachea Suction/Ventilator Gram Stain - Final 10/14/18 13:21 Blood - Peripheral Venous Blood Culture - Preliminary NO GROWTH OBTAINED AFTER 48 HOURS, INCUBATION TO CONTINUE FOR 3 DAYS. 10/14/18 18:24 Urine - Urine - Catheterized Urine Culture - Preliminary Group D Strep Or Entero Coccus 10/14/18 13:21 Blood - Peripheral Venous Blood Culture - Preliminary Presumptive Ps Aeruginosa 10/14/18 14:16 Stool Clostridioides difficile Antigen - Final 10/14/18 14:16 Stool Clostridioides difficile Toxin Assay - Final a/p pseudomonas bacteremia multilobar pneumonia chronic resp failure copd continue meropenem f/u culture results Problem List - Problems (1) Septic shock Code(s): A41.9 - SEPSIS, UNSPECIFIED ORGANISM; R65.21 - SEVERE SEPSIS WITH SEPTIC SHOCK (2) Gram negative sepsis Code(s): A41.50 - GRAM-NEGATIVE SEPSIS, UNSPECIFIED (3) Pneumonia Code(s): J18.9 - PNEUMONIA, UNSPECIFIED ORGANISM (4) Chronic respiratory failure Code(s): J96.10 - CHRONIC RESPIRATORY FAILURE, UNSP W HYPOXIA OR HYPERCAPNIA (5) Anemia Code(s): D64.9 - ANEMIA, UNSPECIFIED
[2018-10-16] MEDS: PAROXETINE HCL ORAL SUSPENSION 10 MG/5 ML GT SCH (17:12)
[2018-10-16] MEDS: ACETAMINOPHEN 325 MG TABLET (FP) PO PRN (17:12)
[2018-10-16] MEDS: AMINO ACIDS 4.25%/D5W 1,000 ML IV SCH ×2 (17:14→23:45)
[2018-10-16] MEDS: DOCUSATE NA 100 MG/10 ML UNIT-DOSE CUPS GT SCH (21:57)
[2018-10-17] MEDS: dilTIAZem HCL 30 MG TABLET (FP) GT SCH ×5 (00:10→23:31)
[2018-10-17] MEDS ORDERED: MEROPENEM 1 GM VIAL (RESTRICTED TO ID) IVPB ONE ×2 (02:29→10:58)
[2018-10-17] MEDS ORDERED: DEXTROSE 5%-WATER 100 ML IVPB ONE ×3 (02:29→20:11)
[2018-10-17] MEDS: MEROPENEM 1 GM in DEXTROSE 5%-WATER 100 ML IVPB SCH ×2 (02:33→12:52)
[2018-10-17] MEDS: AMINO ACIDS 4.25%/D5W 1,000 ML IV SCH ×4 (06:07→23:31)
[2018-10-17 08:10] LABS: BASO % 0.2 % (0-2.0); LYMPH % 2.3 % (8-40); MCH 29.4 pg (25.7-33.7); MCHC 33.4 g/dl (32.0-36.0); MEAN CELL VOLUME 88.2 fl (80-96); MEAN PLT VOLUME 7.9 fl (7.5-11.1); MONO % 7.2 % (3.8-10.2); NEUT % 89.3 % (42.8-82.8); PLATELET COUNT 535 K/MM3 (134-434); RDW 14.1 % (11.6-15.6); WHITE BLOOD COUNT 19.8 K/mm3 (4.0-10.0)
--- NOTE | 2018-10-17 08:14 | RAPID ---
Physical Examination Vital Signs: Vital Signs Temperature 98.9 F 10/17/18 06:00 Pulse Rate 97 H 10/17/18 06:00 Respiratory Rate 20 10/17/18 06:00 Blood Pressure 153/70 10/17/18 06:00 O2 Sat by Pulse Oximetry (%) 98 10/16/18 22:00 Rapid Response - Rapid Response Assessment: Rapid response called at 5S. Patient was noted to be desaturating to 70s. Copious secretions were also noted on the trach. Suction done, sats improved to 90% General: lethargic, on mech vent VS: BP 164/83, HR 101 O2 sat 91% Lungs: coarse breath sounds bilaterally Heart: Tachycardic, normal S1 S2 EKG ABG CXR Albuterol neb Duplex scan bilateral LE Will start Heparin 5000units sq TID Primary team made aware.
[2018-10-17 08:53] LABS: ALBUMIN 1.6 g/dl (3.4-5.0); ALK PHOS 108 U/L (45-117); ANION GAP 5 MMOL/L (8-16); BILIRUBIN,TOTAL 0.5 mg/dL (0.2-1); BLOOD UREA NITROGEN 27 mg/dL (7-18); CHLORIDE 90 mmol/L (98-107); CO2 39 mmol/L (21-32); CREATININE 0.2 mg/dL (0.55-1.3); GLUCOSE,RANDOM 134 mg/dL (74-106); MAGNESIUM 1.9 mg/dL (1.8-2.4); POTASSIUM 3.5 mmol/L (3.5-5.1); SGOT/AST 22 U/L (15-37); SGPT/ALT 29 U/L (13-61); SODIUM 134 mmol/L (136-145); TOT PROT 5.6 g/dl (6.4-8.2)
[2018-10-17 09:01] LABS: ARTERIAL BLD GAS O2 SATURATION 93.7 % (95-98); ARTERIAL BLOOD GAS BASE EXCESS 9.8 meq/l (-2-2); ARTERIAL BLOOD GAS PCO2 69.8 mmHg (35-45); ARTERIAL BLOOD GAS PO2 71.3 mmHg (80-105); ARTERIAL BLOOD GAS pH 7.34 (7.35-7.45)
[2018-10-17 09:05] LABS: ALLENS TEST POSITIVE
--- NOTE | 2018-10-17 09:17 | PN ---
Physical Exam: SUBJECTIVE: ICU PROGRESS NOTE/ RE-EVALUATION Was requested by primary team to evaluate patient after [employer]IC this am 2/2 desaturation. Per nursing staff, patient was noted to be stable on morning bedside rounds. Later this AM, nursing staff found the patient with vent disconnected and copious amount of secretions leaking from trach tube. Saturations at this time noted to be 88. [employer] MACH[employer] MECHANIC was called. Ventilator was reconnected, FiO2 increased to 100% and patient was suctioned w/ copious amounts of secretions retrieved. Saturations returned to 91%. ABG and CXR ordered, currently pending. On my evaluation, BP 167/78, HR 112, Sat 92%. Patient breathing well on vent, at baseline mental status as per nursing staff. OBJECTIVE: Vital Signs Period Temp Pulse Resp BP Sys/Mccartney Pulse Ox Last 24 Hr 98.0 F-100.0 F 79-97 18-20 124-159/62-94 93-98 GENERAL: The patient is trached on ventilator. She is lethargic, in NAD, non verbal but easily roused to voice. This is baseline mental status per nursing and family. HEAD: Normal with no signs of trauma. EYES: PERRL, sclera anicteric, conjunctiva clear. No ptosis. LUNGS: Breath sounds equal, crackles heard at the bases, mechanical breath sounds. HEART: Regular rate and rhythm, S1, S2 without murmur, rub or gallop. ABDOMEN: Soft, nontender, nondistended, normoactive bowel sounds, no guarding, no rebound, no hepatosplenomegaly, no masses. EXTREMITIES: 2+ pulses, warm, well-perfused, 2+ pedal edema. SCDs in place. NEUROLOGICAL: unable to perform due to clinical status SKIN: Warm, dry, normal turgor, no rashes or lesions noted Laboratory Results - last 24 hr 10/16/18 10/17/18 12:23 07:40 WBC 19.8 H RBC 3.40 L Hgb 10.0 L Hct 30.0 L MCV 88.2 MCH 29.4 MCHC 33.4 RDW 14.1 Plt Count 535 H MPV 7.9 Absolute Neuts (auto) 17.7 H Neutrophils % 89.3 H Lymphocytes % 2.3 L D Monocytes % 7.2 Eosinophils % 1.0 D Basophils % 0.2 Nucleated RBC % 0 POC Glucometer 152 Active Medications Generic Name Dose Route Start Last Admin Trade Name Freq PRN Reason Stop Dose Admin Acetaminophen 650 mg 10/14/18 21:52 10/16/18 17:12 Tylenol - PO 650 mg Q6H PRN Administration FEVER Albuterol Sulfate 1 amp 10/14/18 21:51 10/16/18 14:08 Ventolin 0.083% Nebulizer Soln - NEB 1 amp Q6H PRN Administration SHORT OF BREATH/WHEEZING Artificial Tears 1 drop 10/15/18 22:00 10/16/18 21:59 Artificial Tears OU 1 drop BID CLAY Administration Atenolol 25 mg 10/16/18 10:00 10/16/18 11:50 Tenormin - GT 25 mg DAILY [facility] Administration Diltiazem HCl 30 mg 10/15/18 12:00 10/17/18 05:57 Cardizem - GT 30 mg Q6HPO CLAY Administration Docusate Sodium 300 mg 10/15/18 22:00 10/16/18 21:57 Colace Liquid - GT 300 mg HS CLAY Administration Heparin Sodium (Porcine) 5,000 unit 10/17/18 10:00 Heparin - SQ BID CLAY Meropenem 1 gm/ Dextrose 100 mls @ 200 mls/hr 10/15/18 10:00 10/17/18 02:33 IVPB 200 mls/hr Q8H-IV C[facility] Administration Amino Acids 1,000 mls @ 83.333 mls/hr 10/15/18 11:30 10/17/18 06:07 Clinimix - IV 83.333 mls/hr Q12H CLAY Administration Pantoprazole Sodium 40 mg 10/17/18 10:00 Protonix Iv IVPUSH DAILY [facility] Paroxetine HCl 10 mg 10/16/18 10:00 10/16/18 17:12 Paxil Oral Suspension - GT 10 mg DAILY [facility] Administration ASSESSMENT/PLAN: Patient had desaturation on the floor this AM 2/2 increased secretions and vent disconnect. Patient reconnected and suctioned with improvement in saturations. Further workup being conducted by rapid response team. On my evaluation, patient had a stable BP with normal saturations. As per the initial conversation with the patient's daughter and HCP, The patient is DNR and the family does not want invasive procedures or vasoactive medications performed. The full details of this conversation can be found in the initial ICU consult note. No indication for transfer to ICU at this time. Visit type - Emergency Visit Emergency Visit: Yes ED Registration Date: 10/14/18 Care time: The patient presented to the Emergency Department on the above date and was hospitalized for further evaluation of their emergent condition. - New Patient This patient is new to me today: Yes Date on this admission: 10/17/18 - Critical Care Critical Care patient: No - Discharge Referral Referred to [facility] Med P.C.: No
--- NOTE | 2018-10-17 09:50 | CON.GI ---
Consult - History of Present Illness History of Present Illness: GI CONSULT DICTATED - CONSERVATIVE MANAGEMENT - PROTONIX 40 MG IV QD - NO PLAN FOR ENDOSCOPIC EVALUATION AT THIS TIME SEE FULL CONSULT DICTATED - Past Medical History Cardio/Vascular: Yes: AFIB, HTN Pulmonary: Yes: COPD, O2 Dependent, Previously Intubated, Other (respiratory failure requiring trach). No: Cancer, Pulmonary Embolus, Pulmonary Fibrosis - Past Surgical History Additional Surgical History: tracheostomy, GT - Alcohol/Substance Use Hx Alcohol Use: No - Smoking History Smoking history: Unknown if ever smoked Have you smoked in the past 12 months: No - Social History Usual Living Arrangement: Senior Care ADL: Support Services History of Recent Travel: No Home Medications - Allergies Allergies/Adverse Reactions: Allergies Allergy/AdvReac Type Severity Reaction Status Date / Time No Known Allergies Allergy Verified 10/14/18 12:24 - Home Medications Home Medications: Ambulatory Orders Acetaminophen 650 mg PEG Q6H PRN 10/15/18 Alprazolam [Xanax] 0.5 mg PEG Q8H 10/15/18 Aspirin 81 mg PEG DAILY 10/15/18 Atenolol [Tenormin -] 25 mg PEG DAILY 10/15/18 Dextran 70/Hypromellose [Artificial Tears Eye Drops] 15 ml OP BID 10/15/18 Diltiazem [Cardizem -] 30 mg PEG Q6H 10/15/18 Docusate Sodium 300 mg PEG HS 10/15/18 Levalbuterol HCl [Xopenex] 1.25 mg IH Q6H 10/15/18 Omeprazole 40 mg PEG DAILY 10/15/18 Paroxetine HCl [Paxil -] 10 mg PEG DAILY 10/15/18 Prednisone [Deltasone] 40 mg PEG DAILY 10/15/18 Quetiapine Fumarate [Seroquel -] 50 mg PEG BID 10/15/18 Physical Exam-GI Vital Signs: Vital Signs Temperature 98.9 F 10/17/18 06:00 Pulse Rate 97 H 10/17/18 06:00 Respiratory Rate 20 10/17/18 06:00 Blood Pressure 153/70 10/17/18 06:00 O2 Sat by Pulse Oximetry (%) 98 10/16/18 22:00 Labs: CBC, BMP 10/17/18 07:40 10/17/18 07:40 INR, PTT INR 1.11 (0.83-1.09) H 10/14/18 13:21
[2018-10-17 10:37] LABS: PLATELET ESTIMATE INCREASED
[2018-10-17] MEDS: ARTIFICIAL TEARS (POLYVINYL ALCOHOL) OPTH DROPS OU SCH ×2 (12:44→21:02)
[2018-10-17] MEDS: PANTOPRAZOLE SODIUM 40 MG VIAL IVPUSH SCH (12:47)
[2018-10-17] MEDS: HEPARIN NA (PORCINE) 5,000 UNITS/ML 1ML VIAL SQ SCH ×2 (12:48→21:02)
[2018-10-17] MEDS: ATENOLOL 25 MG TABLET (FP) GT SCH (12:49)
--- NOTE | 2018-10-17 13:42 | PN ---
Progress Note, Physician History of Present Illness: pulmonary poorly responsive on vent support ac mode - Current Medication List Current Medications: Active Medications Acetaminophen (Tylenol -) 650 mg PO Q6H PRN PRN Reason: FEVER Last Admin: 10/16/18 17:12 Dose: 650 mg Albuterol Sulfate (Ventolin 0.083% Nebulizer Soln -) 1 amp NEB Q6H PRN PRN Reason: SHORT OF BREATH/WHEEZING Last Admin: 10/16/18 14:08 Dose: 1 amp Artificial Tears (Artificial Tears) 1 drop OU BID [facility] Last Admin: 10/17/18 12:44 Dose: 1 drop Atenolol (Tenormin -) 25 mg GT DAILY [facility] Last Admin: 10/17/18 12:49 Dose: 25 mg Diltiazem HCl (Cardizem -) 30 mg GT Q6HPO [facility] Last Admin: 10/17/18 12:49 Dose: 30 mg Docusate Sodium (Colace Liquid -) 300 mg GT HS [facility] Last Admin: 10/16/18 21:57 Dose: 300 mg Heparin Sodium (Porcine) (Heparin -) 5,000 unit SQ BID [facility] Last Admin: 10/17/18 12:48 Dose: 5,000 unit Meropenem 1 gm/ Dextrose 100 mls @ 200 mls/hr IVPB Q8H-IV [facility] Last Admin: 10/17/18 12:52 Dose: 200 mls/hr Amino Acids (Clinimix -) 1,000 mls @ 83.333 mls/hr IV Q12H [facility] Last Admin: 10/17/18 12:49 Dose: Not Given Pantoprazole Sodium (Protonix Iv) 40 mg IVPUSH DAILY [facility] Last Admin: 10/17/18 12:47 Dose: 40 mg Paroxetine HCl (Paxil Oral Suspension -) 10 mg GT DAILY [facility] Last Admin: 10/16/18 17:12 Dose: 10 mg - Objective Vital Signs: Vital Signs Temperature 98.9 F 10/17/18 12:45 Pulse Rate 114 H 10/17/18 12:45 Respiratory Rate 20 10/17/18 13:00 Blood Pressure 155/110 H 10/17/18 13:00 O2 Sat by Pulse Oximetry (%) 98 10/16/18 22:00 Constitutional: Yes: Thin, Other (poorly responsive) Eyes: Yes: WNL HENT: Yes: WNL Neck: Yes: Supple (trach) Cardiovascular: Yes: Regular Rate and Rhythm, S1, S2 Respiratory: Yes: Rhonchi (sekou rhonchi) Gastrointestinal: Yes: Normal Bowel Sounds, Soft Extremities: Yes: WNL Edema: No Labs: CBC, BMP 10/17/18 07:40 10/17/18 07:40 INR, PTT INR 1.11 (0.83-1.09) H 10/14/18 13:21 - ....Imaging Chest X-ray: Report Reviewed, Image Reviewed (worsening sekou infil) Assessment/Plan Problem List - Problems (1) Sepsis associated hypotension Code(s): A41.9 - SEPSIS, UNSPECIFIED ORGANISM; I95.9 - HYPOTENSION, UNSPECIFIED (2) Acute and chronic respiratory failure Code(s): J96.20 - ACUTE AND CHR RESP FAILURE, UNSP W HYPOXIA OR HYPERCAPNIA (3) Anemia Code(s): D64.9 - ANEMIA, UNSPECIFIED (4) Hypotension Code(s): I95.9 - HYPOTENSION, UNSPECIFIED (5) Pneumonia Code(s): J18.9 - PNEUMONIA, UNSPECIFIED ORGANISM (6) Toxic metabolic encephalopathy Code(s): G92 - TOXIC ENCEPHALOPATHY Assessment/Plan ABX coverage per ID AC Mode of vent BD TX PRN Not a candidate for wean at this time VTE prophylaxis monitor lytes f/u chest x-rays nutritional support dvt prophylaxis DR LUGO
--- NOTE | 2018-10-17 14:13 | EKG ---
Test Reason : Blood Pressure : / mmHG Vent. Rate : 104 BPM Atrial Rate : 104 BPM P-R Int : 122 ms QRS Dur : 072 ms QT Int : 318 ms P-R-T Axes : 080 090 063 degrees QTc Int : 418 ms POOR DATA QUALITY, INTERPRETATION MAY BE ADVERSELY AFFECTED SINUS TACHYCARDIA RIGHTWARD AXIS PULMONARY DISEASE PATTERN ABNORMAL ECG Confirmed by MD AGEE MOYSES ([id number]) on 10/17/2018 2:13:05 PM Referred By: [facility] Confirmed By:MONAE AGEE MD
[2018-10-17] MEDS: PAROXETINE HCL ORAL SUSPENSION 10 MG/5 ML GT SCH (14:50)
--- NOTE | 2018-10-17 15:16 | CONS ---
GASTROINTESTINAL CONSULTATION DATE OF CONSULTATION: DATE OF DICTATION: 10/17/2018 HISTORY OF PRESENT ILLNESS: The patient is a 68-year-old female with a past medical history significant for COPD, hypertension, atrial fibrillation, who was recently hospitalized at [facility] for acute respiratory failure requiring tracheostomy and PEG tube placement. She was then discharged to the rehab center; at which time, she developed hypotension and fever and was transferred to [facility] for further management. She is currently being treated for sepsis, pneumonia. Earlier today, she had a Rapid Response for hypoxia. GI was called for anemia. Patient is nonverbal. Therefore, the HPI is limited. PAST MEDICAL AND SURGICAL HISTORY: As listed in the HPI. ALLERGIES: No known drug allergies. SOCIAL AND FAMILY HISTORY: Noncontributory. OUTSIDE MEDICATIONS: Were reviewed. REVIEW OF SYSTEMS: Unable to obtain, secondary to patient's status. PHYSICAL EXAMINATION: Vital Signs: Temperature 98, pulse 114, blood pressure 164/81, pulse oximetry 100% on ventilation. General: No acute distress. HEENT: Anicteric sclera. Cardiovascular: S1, S2. Regular rate and rhythm. Lungs: Bilaterally clear to auscultation. Abdomen: Not tender with normal bowel sounds. Extremities: No edema. LABORATORIES: White blood cell count 19.8, hemoglobin 6.8 and hematocrit 20 on the with an MCV of 90. Currently, it is 10 over 30 and has been stable on the , , and of this month with an MCV of 88. Platelet count 535. INR 1.1. Sodium 134, potassium 3.3, BUN 27, creatinine 0.2, glucose 134. Ferritin 9700. Liver tests are within normal limits. Urine was negative on the and stool for occult blood is positive. IMAGING: She had a chest x-ray on the which revealed progressive congestion and infiltrative changes. She had an abdomen and pelvis CT scan on the which revealed extensive, diffuse pulmonary consolidation, pleural effusions, aspiration is suspected, no intra-abdominal abscess or pathology in the abdomen. IMPRESSION: Normocytic anemia. Fecal occult blood testing is positive. There is no sign of an overt GI bleed in this patient. She is hemodynamically stable from that standpoint. On the other hand, she has extensive pulmonary disease and clinically has been appearing to deteriorate from a respiratory standpoint. Would therefore recommend conservative management, including Protonix 40 mg IV b.i.d. Monitor her hemoglobin and hematocrit q.12 while hospitalized. Would avoid NSAIDs and hold off on any invasive procedures, considering her multiple comorbidities and current clinical state. Continue antibiotics and pulmonary treatment, as per Infectious Disease and Pulmonary. The patient will be followed by the GI service. DO GEOVANNY APPLE/[id number]
[2018-10-17] MEDS ORDERED: FENTANYL PATCH WASTE MC PRN (15:36)
[2018-10-17] MEDS ORDERED: MORPHINE SULFATE 2 MG/ML VIAL IVPUSH ONE (15:40)
[2018-10-17] MEDS ORDERED: fentaNYL 25mcg/hr PATCH.TD72 TD SCH (15:45)
--- NOTE | 2018-10-17 15:46 | PN ---
Progress Note, Physician Chief Complaint: CHRONICALLY ILL 68Y/O F ON VENT WITH POOR OVERALL PROGNOSIS. CHART AND NOTES REVIEWED - Current Medication List Current Medications: Active Medications Acetaminophen (Tylenol -) 650 mg PO Q6H PRN PRN Reason: FEVER Last Admin: 10/16/18 17:12 Dose: 650 mg Albuterol Sulfate (Ventolin 0.083% Nebulizer Soln -) 1 amp NEB Q6H PRN PRN Reason: SHORT OF BREATH/WHEEZING Last Admin: 10/16/18 14:08 Dose: 1 amp Artificial Tears (Artificial Tears) 1 drop OU BID [facility] Last Admin: 10/17/18 12:44 Dose: 1 drop Atenolol (Tenormin -) 25 mg GT DAILY [facility] Last Admin: 10/17/18 12:49 Dose: 25 mg Diltiazem HCl (Cardizem -) 30 mg GT Q6HPO [facility] Last Admin: 10/17/18 12:49 Dose: 30 mg Docusate Sodium (Colace Liquid -) 300 mg GT HS [facility] Last Admin: 10/16/18 21:57 Dose: 300 mg Fentanyl (Duragesic 25mcg Patch -) 1 patch TD Q72H [facility] Stop: 10/24/18 15:36 Heparin Sodium (Porcine) (Heparin -) 5,000 unit SQ BID [facility] Last Admin: 10/17/18 12:48 Dose: 5,000 unit Meropenem 1 gm/ Dextrose 100 mls @ 200 mls/hr IVPB Q8H-IV [facility] Last Admin: 10/17/18 12:52 Dose: 200 mls/hr Amino Acids (Clinimix -) 1,000 mls @ 83.333 mls/hr IV Q12H [facility] Last Admin: 10/17/18 12:49 Dose: Not Given Miscellaneous (Duragesic Patch Waste) 1 each MC PRN PRN PRN Reason: PAIN Pantoprazole Sodium (Protonix Iv) 40 mg IVPUSH DAILY [facility] Last Admin: 10/17/18 12:47 Dose: 40 mg Paroxetine HCl (Paxil Oral Suspension -) 10 mg GT DAILY [facility] Last Admin: 10/17/18 14:50 Dose: 10 mg - Objective Vital Signs: Vital Signs Temperature 98.9 F 10/17/18 12:45 Pulse Rate 114 H 10/17/18 12:45 Respiratory Rate 20 10/17/18 13:00 Blood Pressure 155/110 H 10/17/18 13:00 O2 Sat by Pulse Oximetry (%) 98 10/16/18 22:00 Constitutional: Yes: Moderate Distress Eyes: Yes: Other Neck: Yes: Other (TRACH) Cardiovascular: Yes: Pulse Irregular Respiratory: Yes: Diminished, Mechanically Ventilated Gastrointestinal: Yes: Soft Genitourinary: Yes: Incontinence Musculoskeletal: Yes: Muscle Weakness Integumentary: Yes: Pressure Ulcer Wound/Incision: Yes: Dressing Dry and Intact Labs: CBC, BMP 10/17/18 07:40 10/17/18 07:40 INR, PTT INR 1.11 (0.83-1.09) H 10/14/18 13:21 Problem List - Problems (1) Acute and chronic respiratory failure Code(s): J96.20 - ACUTE AND CHR RESP FAILURE, UNSP W HYPOXIA OR HYPERCAPNIA (2) Anemia Code(s): D64.9 - ANEMIA, UNSPECIFIED (3) Chronic respiratory failure Code(s): J96.10 - CHRONIC RESPIRATORY FAILURE, UNSP W HYPOXIA OR HYPERCAPNIA (4) Gram negative sepsis Code(s): A41.50 - GRAM-NEGATIVE SEPSIS, UNSPECIFIED (5) Septic shock Code(s): A41.9 - SEPSIS, UNSPECIFIED ORGANISM; R65.21 - SEVERE SEPSIS WITH SEPTIC SHOCK (6) Toxic metabolic encephalopathy Code(s): G92 - TOXIC ENCEPHALOPATHY Assessment/Plan IV MORPHINE 2MG X 1 DURAGESIC PATCH 25MCG DAILY TO REDUCE VENT BUCKING. VENT SUPPORT PULM F/U. PASSIONATE PALLIATIVE CARE PER FAMILY. DECIDING ON HOSPICE CARE
--- NOTE | 2018-10-17 16:52 | PN ---
Progress Note (short form) - Note Progress Note: trach to vent opens eyes lethargic episode hypoxia this am Vital Signs Period Temp Pulse Resp BP Sys/Mccartney Pulse Ox Last 24 Hr 97.7 F-98.9 F 83-114 18-20 122-165/49-110 95-98 trach to vent cor-rrr lungs decreased bs at bases abd soft,nt ext no edema CBC, BMP 10/17/18 07:40 10/17/18 07:40 Microbiology 10/14/18 13:21 Blood - Peripheral Venous Blood Culture - Preliminary NO GROWTH OBTAINED AFTER 72 HOURS, INCUBATION TO CONTINUE FOR 2 DAYS. 10/15/18 18:10 Sputum - Endotrachea Suction/Ventilator Gram Stain - Final 10/15/18 18:10 Sputum - Endotrachea Suction/Ventilator Sputum Culture - Preliminary Presumptive Ps Aeruginosa 10/14/18 18:24 Urine - Urine - Catheterized Urine Culture - Final Vr Ec Faecalis 10/14/18 13:21 Blood - Peripheral Venous Blood Culture - Final Pseudomonas Aeruginosa 10/14/18 14:16 Stool Clostridioides difficile Antigen - Final 10/14/18 14:16 Stool Clostridioides difficile Toxin Assay - Final a/p pseudomonas bacteremia multilobar pneumonia-pseudomonas chronic resp failure copd urine with VREF-suspect colonization high dose zosyn overall prognosis is poor Problem List - Problems (1) Septic shock Code(s): A41.9 - SEPSIS, UNSPECIFIED ORGANISM; R65.21 - SEVERE SEPSIS WITH SEPTIC SHOCK (2) Gram negative sepsis Code(s): A41.50 - GRAM-NEGATIVE SEPSIS, UNSPECIFIED (3) Pneumonia Code(s): J18.9 - PNEUMONIA, UNSPECIFIED ORGANISM (4) Chronic respiratory failure Code(s): J96.10 - CHRONIC RESPIRATORY FAILURE, UNSP W HYPOXIA OR HYPERCAPNIA (5) Anemia Code(s): D64.9 - ANEMIA, UNSPECIFIED
[2018-10-17] MEDS ORDERED: PIPERACILLIN/TAZOBACTAM 4.5 GM VIAL IVPB ONE (20:11)
[2018-10-17] MEDS: PIPERACILLIN/TAZOB 4.5 GM 4.5 GM in DEXTROSE 5%-WATER 100 ML IVPB SCH (21:01)
[2018-10-17] MEDS: DOCUSATE NA 100 MG/10 ML UNIT-DOSE CUPS GT SCH (21:02)
[2018-10-17] MEDS: ALBUTEROL SO4 0.083% IH SOL 2.5 MG/3 ML VIAL.NEB. NEB PRN (21:05)
[2018-10-18] MEDS ORDERED: PIPERACILLIN/TAZOBACTAM 4.5 GM VIAL IVPB ONE ×3 (01:06→15:47)
[2018-10-18] MEDS ORDERED: DEXTROSE 5%-WATER 100 ML IVPB ONE ×3 (01:07→15:47)
[2018-10-18] MEDS: PIPERACILLIN/TAZOB 4.5 GM 4.5 GM in DEXTROSE 5%-WATER 100 ML IVPB SCH ×3 (02:32→15:51)
[2018-10-18 04:11] LABS: SERUM IRON SATURATION 25 % (15-55); TOTAL IRON BINDING CAPACITY 179 ug/dL (250-450); UIBC 135 ug/dL (118-369)
[2018-10-18] MEDS: AMINO ACIDS 4.25%/D5W 1,000 ML IV SCH ×2 (06:17→12:49)
[2018-10-18] MEDS: dilTIAZem HCL 30 MG TABLET (FP) GT SCH ×2 (06:17→13:04)
[2018-10-18] MEDS ORDERED: PT OWN MED DRAWER 7, Y5N ONE ×2 (09:14→13:02)
--- NOTE | 2018-10-18 09:30 | PN ---
Progress Note, Physician Chief Complaint: DISCUSSED WITH LOAN THE PATIENT'S DAUGHTER AND SHE WANTS TO HAVE HOSPICE CARE AND COMPASSIONATE WEAN OFF VENT. - Current Medication List Current Medications: Active Medications Acetaminophen (Tylenol -) 650 mg PO Q6H PRN PRN Reason: FEVER Last Admin: 10/16/18 17:12 Dose: 650 mg Albuterol Sulfate (Ventolin 0.083% Nebulizer Soln -) 1 amp NEB Q6H PRN PRN Reason: SHORT OF BREATH/WHEEZING Last Admin: 10/17/18 21:05 Dose: 1 amp Artificial Tears (Artificial Tears) 1 drop OU BID [facility] Last Admin: 10/17/18 21:02 Dose: 1 drop Atenolol (Tenormin -) 25 mg GT DAILY [facility] Last Admin: 10/17/18 12:49 Dose: 25 mg Diltiazem HCl (Cardizem -) 30 mg GT Q6HPO [facility] Last Admin: 10/18/18 06:17 Dose: 30 mg Docusate Sodium (Colace Liquid -) 300 mg GT HS [facility] Last Admin: 10/17/18 21:02 Dose: 300 mg Fentanyl (Duragesic 25mcg Patch -) 1 patch TD Q72H [facility] Stop: 10/24/18 15:36 Last Admin: 10/17/18 17:16 Dose: 1 patch Heparin Sodium (Porcine) (Heparin -) 5,000 unit SQ BID [facility] Last Admin: 10/17/18 21:02 Dose: 5,000 unit Amino Acids (Clinimix -) 1,000 mls @ 83.333 mls/hr IV Q12H [facility] Last Admin: 10/18/18 06:17 Dose: 83.333 mls/hr Piperacillin Sod/Tazobactam (Sod 4.5 gm/ Dextrose) 100 mls @ 200 mls/hr IVPB Q6H-IV [facility]; Protocol Last Admin: 10/18/18 02:32 Dose: 200 mls/hr Miscellaneous (Duragesic Patch Waste) 1 each MC PRN PRN PRN Reason: PAIN Pantoprazole Sodium (Protonix Iv) 40 mg IVPUSH DAILY [facility] Last Admin: 10/17/18 12:47 Dose: 40 mg Paroxetine HCl (Paxil Oral Suspension -) 10 mg GT DAILY [facility] Last Admin: 10/17/18 14:50 Dose: 10 mg - Objective Vital Signs: Vital Signs Temperature 98.1 F 10/18/18 06:00 Pulse Rate 80 10/18/18 06:20 Respiratory Rate 18 10/18/18 06:25 Blood Pressure 144/67 10/18/18 06:00 O2 Sat by Pulse Oximetry (%) 97 10/18/18 06:20 Constitutional: Yes: Mild Distress Cardiovascular: Yes: Pulse Irregular Respiratory: Yes: Mechanically Ventilated Gastrointestinal: Yes: Soft Genitourinary: Yes: Incontinence Edema: Yes Integumentary: Yes: Pressure Ulcer, Rash, Venous Stasis Changes Wound/Incision: Yes: Dressing Dry and Intact, Excoriated, Unapproximated Neurological: Yes: Aphasia, Asterixis, Ataxia, Unresponsive Labs: CBC, BMP 10/17/18 07:40 10/17/18 07:40 INR, PTT INR 1.11 (0.83-1.09) H 10/14/18 13:21 Problem List - Problems (1) Acute and chronic respiratory failure Code(s): J96.20 - ACUTE AND CHR RESP FAILURE, UNSP W HYPOXIA OR HYPERCAPNIA (2) Anemia Code(s): D64.9 - ANEMIA, UNSPECIFIED (3) Chronic respiratory failure Code(s): J96.10 - CHRONIC RESPIRATORY FAILURE, UNSP W HYPOXIA OR HYPERCAPNIA (4) Gram negative sepsis Code(s): A41.50 - GRAM-NEGATIVE SEPSIS, UNSPECIFIED (5) Septic shock Code(s): A41.9 - SEPSIS, UNSPECIFIED ORGANISM; R65.21 - SEVERE SEPSIS WITH SEPTIC SHOCK (6) Toxic metabolic encephalopathy Code(s): G92 - TOXIC ENCEPHALOPATHY Assessment/Plan START COMPASSIONATE WEAN OFF VENT SUPPORT WILL NOTIFY PULMONARY MORPHINE AND DURAGESIC PATCH TITRATE TO COMFORT PALLIATIVE CARE F/U APPRECIATED CLERGY CALLED FOR FAMILY SUPPORT
[2018-10-18] MEDS: PANTOPRAZOLE SODIUM 40 MG VIAL IVPUSH SCH (09:49)
[2018-10-18] MEDS: HEPARIN NA (PORCINE) 5,000 UNITS/ML 1ML VIAL SQ SCH (09:50)
[2018-10-18] MEDS: ATENOLOL 25 MG TABLET (FP) GT SCH (09:50)
--- NOTE | 2018-10-18 11:17 | PN ---
Progress Note, Physician History of Present Illness: pulmonary lethargic on vent support ac mode fio2 increased to 100% secondary to hypoxemia - Current Medication List Current Medications: Active Medications Acetaminophen (Tylenol -) 650 mg PO Q6H PRN PRN Reason: FEVER Last Admin: 10/16/18 17:12 Dose: 650 mg Albuterol Sulfate (Ventolin 0.083% Nebulizer Soln -) 1 amp NEB Q6H PRN PRN Reason: SHORT OF BREATH/WHEEZING Last Admin: 10/17/18 21:05 Dose: 1 amp Artificial Tears (Artificial Tears) 1 drop OU BID [facility] Last Admin: 10/17/18 21:02 Dose: 1 drop Atenolol (Tenormin -) 25 mg GT DAILY [facility] Last Admin: 10/18/18 09:50 Dose: 25 mg Diltiazem HCl (Cardizem -) 30 mg GT Q6HPO [facility] Last Admin: 10/18/18 06:17 Dose: 30 mg Docusate Sodium (Colace Liquid -) 300 mg GT HS [facility] Last Admin: 10/17/18 21:02 Dose: 300 mg Fentanyl (Duragesic 25mcg Patch -) 1 patch TD Q72H [facility] Stop: 10/24/18 15:36 Last Admin: 10/17/18 17:16 Dose: 1 patch Heparin Sodium (Porcine) (Heparin -) 5,000 unit SQ BID [facility] Last Admin: 10/18/18 09:50 Dose: 5,000 unit Amino Acids (Clinimix -) 1,000 mls @ 83.333 mls/hr IV Q12H [facility] Last Admin: 10/18/18 06:17 Dose: 83.333 mls/hr Piperacillin Sod/Tazobactam (Sod 4.5 gm/ Dextrose) 100 mls @ 200 mls/hr IVPB Q6H-IV [facility]; Protocol Last Admin: 10/18/18 09:49 Dose: 200 mls/hr Miscellaneous (Duragesic Patch Waste) 1 each MC PRN PRN PRN Reason: PAIN Pantoprazole Sodium (Protonix Iv) 40 mg IVPUSH DAILY [facility] Last Admin: 10/18/18 09:49 Dose: 40 mg Paroxetine HCl (Paxil Oral Suspension -) 10 mg GT DAILY [facility] Last Admin: 10/17/18 14:50 Dose: 10 mg - Objective Vital Signs: Vital Signs Temperature 98.1 F 10/18/18 06:00 Pulse Rate 80 10/18/18 09:44 Respiratory Rate 18 10/18/18 09:44 Blood Pressure 158/51 L 10/18/18 09:44 O2 Sat by Pulse Oximetry (%) 97 10/18/18 08:15 Constitutional: Yes: Well Nourished, Other (lethargic) Eyes: Yes: WNL HENT: Yes: WNL Neck: Yes: Supple (trach) Cardiovascular: Yes: Regular Rate and Rhythm, S1, S2 Respiratory: Yes: Rhonchi (bilateral rhonchi) Gastrointestinal: Yes: Normal Bowel Sounds, Soft Extremities: Yes: WNL Edema: No Labs: CBC, BMP 10/17/18 07:40 10/17/18 07:40 INR, PTT INR 1.11 (0.83-1.09) H 10/14/18 13:21 Assessment/Plan Problem List - Problems (1) Sepsis associated hypotension Code(s): A41.9 - SEPSIS, UNSPECIFIED ORGANISM; I95.9 - HYPOTENSION, UNSPECIFIED (2) Acute and chronic respiratory failure Code(s): J96.20 - ACUTE AND CHR RESP FAILURE, UNSP W HYPOXIA OR HYPERCAPNIA (3) Anemia Code(s): D64.9 - ANEMIA, UNSPECIFIED (4) Hypotension Code(s): I95.9 - HYPOTENSION, UNSPECIFIED (5) Pneumonia Code(s): J18.9 - PNEUMONIA, UNSPECIFIED ORGANISM (6) Toxic metabolic encephalopathy Code(s): G92 - TOXIC ENCEPHALOPATHY Assessment/Plan ABX coverage per ID AC Mode of vent BD TX PRN Not a candidate for wean at this time VTE prophylaxis monitor lytes f/u chest x-rays nutritional support dvt prophylaxis prognosis poor DR LUGO
[2018-10-18] MEDS: ARTIFICIAL TEARS (POLYVINYL ALCOHOL) OPTH DROPS OU SCH (12:51)
[2018-10-18] MEDS: PAROXETINE HCL ORAL SUSPENSION 10 MG/5 ML GT SCH (13:04)
--- NOTE | 2018-10-18 16:52 | PN.GI ---
GI Progress Note Subjective: Pt seen/examined at bedside, lethargic, on full vent support, opens eyes to verbal stimuli. No overt bleeding reported. - Objective Vital Signs: Vital Signs Temperature 99.8 F H 10/18/18 14:53 Pulse Rate 71 10/18/18 14:53 Respiratory Rate 18 10/18/18 16:30 Blood Pressure 119/58 L 10/18/18 14:53 O2 Sat by Pulse Oximetry (%) 97 10/18/18 08:15 Constitutional: No Distress, Other (lethargic) Cardiovascular: Yes: WNL, Regular Rate and Rhythm Respiratory: Yes: Mechanically Ventilated ...Palpate: Yes: Other (abd soft, +PEG in situ, no tenderness elicited) Labs: CBC, BMP 10/17/18 07:40 10/17/18 07:40 INR, PTT INR 1.11 (0.83-1.09) H 10/14/18 13:21 Problem List - Problems (1) Anemia Assessment/Plan: 68yo female h/o COPD, A fib, respiratory failure s/p trach, peg presenting with AMS and fever with pseudomonas bacteremia asked to evaluate for anemia. No evidence of iron deficiency. No overt bleeding. Pt requiring full vent support, per nursing notes family considering palliative care. -No plans for endoscopic evaluation at this time in absence of overt bleeding and with stable Hb as risks likely outweigh potential benefits -Continue to monitor Hb and for evidence of bleeding -PPI daily -Palliative care consult and GOC discussion -Further management per primary team Code(s): D64.9 - ANEMIA, UNSPECIFIED
[2018-10-18] MEDS ORDERED: MORPHINE 100 MG in SODIUM CHLORIDE 98 ML IVPB SCH (17:00)
[2018-10-18] MEDS ORDERED: SCOPOLAMINE HYDROBROMIDE 1 PATCH PATCH.TD72 TD SCH (17:00)
[2018-10-19] MEDS ORDERED: LORazepam 2 MG/ML SDV VIAL IVPUSH PRN (11:53)
--- NOTE | 2018-10-19 11:55 | PN ---
Progress Note, Physician History of Present Illness: pulmonary As per pts family wishes wants to discontinue ventilator support compassionate weaning. DR LUGO - Current Medication List Current Medications: Active Medications Fentanyl (Duragesic 25mcg Patch -) 1 patch TD Q72H [facility] Stop: 10/24/18 15:36 Last Admin: 10/17/18 17:16 Dose: 1 patch Morphine Sulfate 100 mg/ (Sodium Chloride) 100 mls @ 1 mls/hr IVPB TITR [facility]; Protocol Last Admin: 10/18/18 17:53 Dose: 1 mg/hr, 1 mls/hr Miscellaneous (Duragesic Patch Waste) 1 each MC PRN PRN PRN Reason: PAIN Scopolamine HBr (Transderm-Scop -) 1 patch TD Q72H [facility] Last Admin: 10/18/18 17:56 Dose: 1 patch - Objective Vital Signs: Vital Signs Temperature 97.9 F 10/19/18 11:15 Pulse Rate 65 10/19/18 11:15 Respiratory Rate 18 10/19/18 11:15 Blood Pressure 114/57 L 10/19/18 11:15 O2 Sat by Pulse Oximetry (%) 96 10/19/18 08:31 Labs: CBC, BMP 10/17/18 07:40 10/17/18 07:40 INR, PTT INR 1.11 (0.83-1.09) H 10/14/18 13:21
--- NOTE | 2018-10-19 11:57 | PN ---
Progress Note, Physician Chief Complaint: Pneumonia Anemia History of Present Illness: Previous notes and events reviewed currently mechanically ventilated as per family wishes they would like hospice care and and compassionate wean off vent Morphine drip on going, ativan prn for agitation/distress, fentanyl patch for pain pulm to d/c mechanical ventilation and will be placed on O2 via trach collar 100 % - Current Medication List Current Medications: Active Medications Fentanyl (Duragesic 25mcg Patch -) 1 patch TD Q72H [facility] Stop: 10/24/18 15:36 Last Admin: 10/17/18 17:16 Dose: 1 patch Morphine Sulfate 100 mg/ (Sodium Chloride) 100 mls @ 1 mls/hr IVPB TITR [facility]; Protocol Last Admin: 10/18/18 17:53 Dose: 1 mg/hr, 1 mls/hr Lorazepam (Ativan Injection -) 0.5 mg IVPUSH Q2H PRN PRN Reason: AGITATION Miscellaneous (Duragesic Patch Waste) 1 each MC PRN PRN PRN Reason: PAIN Scopolamine HBr (Transderm-Scop -) 1 patch TD Q72H [facility] Last Admin: 10/18/18 17:56 Dose: 1 patch - Objective Vital Signs: Vital Signs Temperature 97.9 F 10/19/18 11:15 Pulse Rate 65 10/19/18 11:15 Respiratory Rate 18 10/19/18 11:15 Blood Pressure 114/57 L 10/19/18 11:15 O2 Sat by Pulse Oximetry (%) 96 10/19/18 08:31 Constitutional: Yes: Mild Distress Eyes: Yes: Conjunctiva Clear HENT: Yes: Atraumatic Neck: Yes: Other (trach) Cardiovascular: Yes: Pulse Irregular Respiratory: Yes: Mechanically Ventilated, Rhonchi Gastrointestinal: Yes: Normal Bowel Sounds, Soft Genitourinary: Yes: Incontinence Musculoskeletal: Yes: Muscle Weakness Extremities: Yes: WNL Edema: No Neurological: Yes: Lethargy Labs: CBC, BMP 10/17/18 07:40 10/17/18 07:40 INR, PTT INR 1.11 (0.83-1.09) H 10/14/18 13:21 Microbiology 10/14/18 13:21 Blood - Peripheral Venous Blood Culture - Preliminary NO GROWTH OBTAINED AFTER 96 HOURS, INCUBATION TO CONTINUE FOR 1 DAYS. 10/15/18 18:10 Sputum - Endotrachea Suction/Ventilator Gram Stain - Final 10/15/18 18:10 Sputum - Endotrachea Suction/Ventilator Sputum Culture - Final Pseudomonas Aeruginosa 10/14/18 18:24 Urine - Urine - Catheterized Urine Culture - Final Vr Ec Faecalis 10/14/18 13:21 Blood - Peripheral Venous Blood Culture - Final Pseudomonas Aeruginosa 10/14/18 14:16 Stool Clostridioides difficile Antigen - Final 10/14/18 14:16 Stool Clostridioides difficile Toxin Assay - Final Problem List - Problems (1) Hypotension Assessment/Plan: -monitor BP Code(s): I95.9 - HYPOTENSION, UNSPECIFIED (2) Toxic metabolic encephalopathy Assessment/Plan: -2/2 sepsis -WBC 19.8 -BC prelim positive for gram neg bacilli Code(s): G92 - TOXIC ENCEPHALOPATHY (3) Septic shock Assessment/Plan: -WBC 19.8 -BC prelim positive for gram neg bacilli -tylenol prn for temp >100F -CXR shows coarse lung changes with some chronic interstitial lung finding as well as acute patchy infiltrates -Chest CT scan shows Extensive, diffuse pulmonary consolidation within KALEB and both lung bases Code(s): A41.9 - SEPSIS, UNSPECIFIED ORGANISM; R65.21 - SEVERE SEPSIS WITH SEPTIC SHOCK (4) Anemia Assessment/Plan: -Hg 10.0 Code(s): D64.9 - ANEMIA, UNSPECIFIED Assessment/Plan palliative consult DNR
[2018-10-19 18:23] VITALS: BP 72/41; PULSE 107; TEMP 97.3
--- NOTE | 2018-10-19 19:40 | HOSP ---
Physical Examination Vital Signs: Vital Signs Temperature 97.3 F L 10/19/18 18:19 Pulse Rate 107 H 10/19/18 18:19 Respiratory Rate 16 10/19/18 18:19 Blood Pressure 72/41 L 10/19/18 18:19 O2 Sat by Pulse Oximetry (%) 96 10/19/18 08:31 Labs: CBC, BMP 10/17/18 07:40 10/17/18 07:40 Hospitalist Encounter Assessment: Patient at 7:20 pm. There was no pulse palpated. Pt was DNR and no resuscitation was attempted. She was noted to be weaned off mechanical ventilation and was for planned for comfort care. Patient's surrogate- Latoya Salguero was notified at around 730pm.
== END 2018-10-19 22:10 | disposition expired | DRG 870 ==
LOC: JER 11:33 → JERBED 14:56 → J5S 10-15 01:26
PROVIDERS: ADMIT Family Medicine; ATTEND Family Medicine
PROC: 5A1955Z Respiratory Ventilation, Greater than 96 Consecutive Hours (ICD-10-PCS; principal; 2018-10-14)
PROC: 30233N1 Transfusion of Nonautologous Red Blood Cells into Peripheral Vein, Percutaneous Approach (ICD-10-PCS; 2018-10-14)
PROC: 3E0F7GC Introduction of Other Therapeutic Substance into Respiratory Tract, Via Natural or Artificial Opening (ICD-10-PCS; 2018-10-17)
DX: A41.50 Gram-negative sepsis, unspecified (principal); J18.1 Lobar pneumonia, unspecified organism; R65.21 Severe sepsis with septic shock; J96.21 Acute and chronic respiratory failure with hypoxia; G92 Toxic encephalopathy; I48.92 Unspecified atrial flutter; Z93.0 Tracheostomy status; Z93.1 Gastrostomy status; J44.9 Chronic obstructive pulmonary disease, unspecified; I10 Essential (primary) hypertension; I48.91 Unspecified atrial fibrillation; I95.9 Hypotension, unspecified; Z66 Do not resuscitate; L89.152 Pressure ulcer of sacral region, stage 2; D64.9 Anemia, unspecified; Z99.81 Dependence on supplemental oxygen
CPT/HCPCS: 36415; 36430; 36511; 36600; 71045-TC-FY; 71250-TC; 74176-TC; 80053; 81003; 82150; 82272; 82728; 82803; 82962; 83540; 83550; 83605; 83690; 83735; 84100; 84436; 84443; 84484; 85025; 85027; 85610; 85730; 86850; 86900; 86901; 86922; 87040; 87070; 87086; 87186; 87205; 87324; 87449; 93005; 93010; 94002; 94640; 99285-25; J0131; J1644; J7030; P9038; P9058